=== PATIENT | female | born 1945 | race Caucasian/White ===

== ENCOUNTER → 2016-09-16 13:56 | Outpatient (CLI) | payer MEDICARE, BC | END | disposition home or self-care (01) | LOC: D.CT 09-14 11:00 | DX: R22.1 Localized swelling, mass and lump, neck (principal); Z85.72 Personal history of non-Hodgkin lymphomas ==

== ENCOUNTER 2019-01-18 10:00 | Outpatient (CLI) | payer MEDICARE, BC | END 2019-01-18 11:00 | disposition home or self-care (01) | LOC: D.MAMMO 10:00 | PROVIDERS: ATTEND Family Medicine | DX: Z12.31 Encounter for screening mammogram for malignant neoplasm of breast (principal) ==